=== PATIENT | male | born 2000 | race Caucasian/White ===

== ENCOUNTER 2022-07-05 11:18 | Emergency (ER) | payer SELFPAY ==
[2022-07-05] MEDS ORDERED: Ibuprofen 600 MG Tab PO ONE (11:29)
== END 2022-07-05 12:33 | disposition home or self-care (01) ==
LOC: MW.ED 11:18
DX: S93.402A Sprain of unspecified ligament of left ankle, initial encounter (principal); X50.1XXA Overexertion from prolonged static or awkward postures, initial encounter
CPT/HCPCS: 73610; 99283; A9270; 99282